=== PATIENT | male | born 1970 | race Caucasian/White ===

== ENCOUNTER 2017-01-14 13:32 | Emergency (ER) | payer MEDICAID ==
[2017-01-14] MEDS ORDERED: ASPIRIN 81 MG TABLET, CHEWABLE PO ONE (14:23)
[2017-01-14] MEDS ORDERED: ONDANSETRON 4 MG TAB.RAPDIS PO ONE (14:24)
--- NOTE | 2017-01-14 14:26 | ER Document Report ---
ED Medical Screen (RME) - General Chief Complaint: Chest Pain Stated Complaint: CHEST PAIN Time Seen by Provider: 01/14/17 14:23 Mode of Arrival: Ambulatory Information source: Patient Notes: 46-year-old male presents to ED for chest pain that comes and goes dizziness off and on since he moved to [place] but worse for the last 4 days. He states today he has had numbness and tingling in his left arm and this is been very concerning and when he squats and gets up he is extremely dizzy and nauseated. He states his father had a heart attack at age 50 and many of his people in his father's side have had heart attacks they also have diabetes that runs for his family. He states he has a history of blood pressure and cholesterol and was told to watch his sugar. He is on metoprolol lisinopril and Suboxone. States he was having a problem with drug addiction but is not had any problem in the last 10 years. Lungs are clear to auscultation bilaterally. I have greeted and performed a rapid initial assessment of this patient. A comprehensive ED assessment and evaluation of the patient, analysis of test results and completion of medical decision making process will be conducted by an additional ED providers. TRAVEL OUTSIDE OF THE [place] IN LAST 30 DAYS: No - Related Data Allergies/Adverse Reactions: No Known Allergies Allergy (Verified 01/14/17 13:33) Home Medications: Current Home Medications Buprenorphine HCl/Naloxone HCl [Suboxone 2 mg-0.5 mg Sl Film] 01/14/17 [History ] Lisinopril [Zestril] 01/14/17 [History] Metoprolol Succinate [Toprol Xl] 01/14/17 [History] Physical Exam - Vital signs Vitals: Temp Pulse Resp BP Pulse Ox 98.3 F 61 12 126/75 H 98 01/14/17 13:41 01/14/17 13:41 01/14/17 13:41 01/14/17 13:41 01/14/17 13:41 Course - Vital Signs Vital signs: Temp Pulse Resp BP Pulse Ox 98.3 F 61 12 126/75 H 98 01/14/17 13:41 01/14/17 13:41 01/14/17 13:41 01/14/17 13:41 01/14/17 13:41
[2017-01-14 15:15] LABS: ABSOLUTE BASOPHILS # (AUTO) 0.1 10^3/uL (0.0-0.2); ABSOLUTE EOSINOPHILS # (AUTO) 0.2 10^3/uL (0.0-0.6); ABSOLUTE LYMPHOCYTES (AUTO) 2.5 10^3/uL (0.5-4.7); ABSOLUTE MONOCYTES (AUTO) 0.6 10^3/uL (0.1-1.4); BASOPHILS % (AUTO) 0.8 % (0-2); EOSINOPHILS % (AUTO) 2.9 % (0-6); HEMOGLOBIN 14.5 g/dL (13.5-17.0); HGB HCT DIFFERENCE 2.5; MEAN CORPUSCULAR HEMOGLOBIN 30.4 pg (27.0-33.4); MEAN CORPUSCULAR HGB CONC 35.3 g/dL (32.0-36.0); MEAN CORPUSCULAR VOLUME 86 fl (80-97); MONOCYTES % (AUTO) 6.9 % (3-13); RED BLOOD COUNT 4.76 10^6/uL (4.35-5.55); RED CELL DISTRIBUTION WIDTH 13.1 % (11.5-14.0); SEGMENTED NEUTROPHILS % (AUTO) 59.4 % (42-78); WHITE BLOOD COUNT 8.4 10^3/uL (4.0-10.5)
[2017-01-14 15:46] LABS: ALANINE AMINOTRANSFERASE 39 U/L (21-72); ALBUMIN 4.7 g/dL (3.5-5.0); ALKALINE PHOSPHATASE 54 U/L (38-126); ANION GAP 11 (5-19); ASPARTATE AMINO TRANSFERASE 22 U/L (17-59); BILIRUBIN,DIRECT 0.3 mg/dL (0.0-0.4); BILIRUBIN,TOTAL 0.5 mg/dL (0.2-1.3); BLOOD UREA NITROGEN 20 mg/dL (7-20); CALCIUM 9.8 mg/dL (8.4-10.2); CARBON DIOXIDE 29 mmol/L (22-30); CHLORIDE 104 mmol/L (98-107); CREATINE KINASE 148 U/L (55-170); CREATININE RESULT 0.76 mg/dL (0.52-1.25); GLUCOSE 82 mg/dL (75-110); SODIUM 144.4 mmol/L (137-145); TOTAL PROTEIN 7.2 g/dL (6.3-8.2)
[2017-01-14 15:58] LABS: CREATINE KINASE MB 1.58 ng/mL (<4.55)
[2017-01-14 16:00] LABS: TROPONIN I < 0.012 ng/mL
--- NOTE | 2017-01-14 16:09 | RADIOLOGY REPORT (SQ) ---
EXAM DESCRIPTION: CHEST PA/LAT COMPLETED DATE/TIME: 01/14/2017 3:57 pm REASON FOR STUDY: chest pain dizziness tingling down left arm COMPARISON: None. EXAM PARAMETERS: NUMBER OF VIEWS: two views TECHNIQUE: Digital Frontal and Lateral radiographic views of the chest acquired. RADIATION DOSE: NA LIMITATIONS: none FINDINGS: LUNGS AND PLEURA: No opacities, masses or pneumothorax. No pleural effusion. MEDIASTINUM AND HILAR STRUCTURES: No masses or contour abnormalities. HEART AND VASCULAR STRUCTURES: Heart normal size. No evidence for failure. BONES: No acute findings. HARDWARE: None in the chest. OTHER: No other significant finding. IMPRESSION: NO SIGNIFICANT RADIOGRAPHIC FINDING IN THE CHEST. TECHNICAL DOCUMENTATION: JOB ID: [id number] [employer]- All Rights Reserved
--- NOTE | 2017-01-14 16:19 | ER Document Report ---
ED Cardiac - General Chief Complaint: Chest Pain Stated Complaint: CHEST PAIN Time Seen by Provider: 01/14/17 14:23 Mode of Arrival: Ambulatory Notes: Patient states she has had 3-4 days of substernal chest pain. It is sharp. It is intermittent. Nothing makes it better or worse. He has had some mild shortness of breath and nausea with it. He states he also gets lightheaded upon standing. He is on 2 different blood pressure medications. He states he also feels that he has had anxiety and panic attacks. There is no radiation of the pain. He states he has had several workups for this in the past that have been negative. TRAVEL OUTSIDE OF THE [place] IN LAST 30 DAYS: No - Related Data Allergies/Adverse Reactions: No Known Allergies Allergy (Verified 01/14/17 14:24) Home Medications: Current Home Medications Buprenorphine HCl/Naloxone HCl [Suboxone 2 mg-0.5 mg Sl Film] 01/14/17 [History ] Lisinopril [Zestril] 01/14/17 [History] Metoprolol Succinate [Toprol Xl] 01/14/17 [History] Past Medical History - General Information source: Patient - Social History Smoking Status: Current Every Day Smoker Chew tobacco use (# tins/day): No Frequency of alcohol use: None Drug Abuse: None, Other Family History: Reviewed & Not Pertinent Patient has suicidal ideation: No Patient has homicidal ideation: No Renal/ Medical History: Denies: Hx Peritoneal Dialysis Review of Systems - Review of Systems Constitutional: denies: Chills, Fever EENT: denies: Nose congestion, Nose discharge Cardiovascular: Chest pain. denies: Syncope Genitourinary: denies: Burning, Dysuria, Discharge -: Yes All other systems reviewed and negative Physical Exam - Vital signs Vitals: Temp Pulse Resp BP Pulse Ox 98.3 F 61 12 126/75 H 98 01/14/17 13:41 01/14/17 13:41 01/14/17 13:41 01/14/17 13:41 01/14/17 13:41 Interpretation: Normal - General General appearance: Appears well, Alert - HEENT Head: Normocephalic, Atraumatic Eyes: Normal Pupils: PERRL - Respiratory Respiratory status: No respiratory distress Chest status: Nontender Breath sounds: Normal Chest palpation: Normal - Cardiovascular Rhythm: Regular Heart sounds: Normal auscultation Murmur: No - Abdominal Inspection: Normal Distension: No distension Bowel sounds: Normal Tenderness: Nontender Organomegaly: No organomegaly - Back Back: Normal, Nontender - Extremities General upper extremity: Normal inspection, Nontender, Normal color, Normal ROM , Normal temperature General lower extremity: Normal inspection, Nontender, Normal color, Normal ROM , Normal temperature, Normal weight bearing. No: Silva's sign - Neurological Neuro grossly intact: Yes Cognition: Normal Orientation: AAOx4 [place] Coma Scale Eye Opening: Spontaneous [place] Coma Scale Verbal: Oriented [place] Coma Scale Motor: Obeys Commands [place] Coma Scale Total: 15 Speech: Normal Motor strength normal: LUE, RUE, LLE, RLE Sensory: Normal - Psychological Associated symptoms: Normal affect, Normal mood - Skin Skin Temperature: Warm Skin Moisture: Dry Skin Color: Normal Course - Vital Signs Vital signs: Temp Pulse Resp BP Pulse Ox 98.3 F 61 12 126/75 H 98 01/14/17 13:41 01/14/17 13:41 01/14/17 13:41 01/14/17 13:41 01/14/17 13:41 - Laboratory Result Diagrams: 01/14/17 15:00 01/14/17 15:00 - Diagnostic Test Radiology reviewed: Image reviewed, Reports reviewed - no ifiltrate or edema - EKG Interpretation by Mo EKG shows normal: Sinus rhythm Rate: Normal Rhythm: NSR [place]/QRS: No: Right axis deviation, Left axis deviation Discharge - Discharge Clinical Impression: Anxiety Chest pain Qualifiers: Chest pain type: unspecified Qualified Code(s): R07.9 - Chest pain, unspecified Condition: Stable Disposition: HOME, SELF-CARE Instructions: Chest Pain of Unclear Cause ([facility]), Anxiety ([facility]) Additional Instructions: Your blood pressure is mildly elevated. Please have this rechecked within 1 week by your doctor. Prescriptions: Alprazolam [Xanax 0.25 mg Tablet] 0.25 mg PO Q6 PRN #15 tab PRN Reason: Forms: Elevated Blood Pressure, Return to Work Referrals: CONRADO MOORE MD [COMMUNITY BASED STAFF] - Follow up in 1 week
[2017-01-14 17:43] VITALS: BP 111/72
--- NOTE | 2017-01-14 20:38 | EKG REPORT ---
SEVERITY:- NORMAL ECG - SINUS RHYTHM : Confirmed by: Bre Banda 14-Jan-2017 20:38:19
== END 2017-01-14 17:42 | disposition home or self-care (01) ==
LOC: ER 13:32
DX: F41.9 Anxiety disorder, unspecified (principal); R07.9 Chest pain, unspecified; F17.200 Nicotine dependence, unspecified, uncomplicated
CPT/HCPCS: 93005; 99285; 36415; 82553; 82550; 85025; 80053; 84484; 71020; 93010; S0119

== ENCOUNTER 2018-03-30 00:22 | Emergency (ER) | payer MEDICAID, OTHER ==
--- NOTE | 2018-03-30 01:14 | RADIOLOGY REPORT (SQ) ---
EXAM DESCRIPTION: XR FOOT 3 OR MORE VIEWS COMPLETED DATE/TME: 03/30/2018 00:37 CLINICAL HISTORY: 47 years Male, pain COMPARISON: None. Findings: Mild swelling includes the left first metatarsophalangeal joint. No radiopaque foreign body. No significant erosion. Punctate soft tissue calcification. No gross radiographic evidence of advanced osteomyelitis. Bones, joints, and soft tissues of the RIGHT XR FOOT 3 VIEWS appear otherwise intact. IMPRESSION: No acute findings.
[2018-03-30] MEDS ORDERED: CEPHALEXIN 500 MG CAPSULE PO ONE (01:28)
[2018-03-30] MEDS ORDERED: COLCHICINE 0.6 MG TABLET PO ONE ×2 (01:28)
[2018-03-30] MEDS ORDERED: KETOROLAC TROMETHAMINE 60 MG/2 ML SDV IM ONE (01:28)
--- NOTE | 2018-03-30 01:35 | ER Document Report ---
ED General - General Chief Complaint: Foot Pain Stated Complaint: FOOT PAIN Time Seen by Provider: 03/30/18 00:37 Notes: Patient is a 47-year-old male without chronic medical problems, does have a history of gouty arthritis to the left great toe who presents with 1 week of pain to the left great toe. Describes it as a dull, throbbing, constant pain worsened by walking toe. Has not tried anything for improvement of the pain. Similar to when he has had gout in the past. The patient does however note that there are some differences. He states that initially it felt exactly like his usual gout and was actually improving 2-3 days ago. He states that on the fourth day the area became more red again and the redness actually spread onto his foot as opposed to just the toe. He states this is quite unusual and is not had this before in the past with gout. Has not seen his primary care doctor regarding today's concerns. Denies fever or constitutional symptoms. He states all the symptoms started after drinking a beer which has triggered his episodes of gout in the past. TRAVEL OUTSIDE OF THE [place] IN LAST 30 DAYS: No - Related Data Allergies/Adverse Reactions: No Known Allergies Allergy (Verified 03/30/18 01:11) Past Medical History - General Information source: Patient - Social History Smoking Status: Never Smoker Frequency of alcohol use: Occasional Drug Abuse: None Lives with: Spouse/Significant other Family History: Reviewed & Not Pertinent Patient has suicidal ideation: No Patient has homicidal ideation: No - Past Medical History Cardiac Medical History: Reports: Hx Hypertension Renal/ Medical History: Denies: Hx Peritoneal Dialysis Review of Systems - Review of Systems Notes: Constitutional: Negative for fever. HENT: Negative for sore throat. Eyes: Negative for visual changes. Cardiovascular: Negative for chest pain. Respiratory: Negative for shortness of breath. Gastrointestinal: Negative for abdominal pain, vomiting or diarrhea. Genitourinary: Negative for dysuria. Musculoskeletal: Pain to the left great toe Skin: Positive for rash. Neurological: Negative for headaches, weakness or numbness. 10 point ROS negative except as marked above and in HPI. Physical Exam - Vital signs Vitals: Temp Pulse Resp BP Pulse Ox 99 F 73 16 148/88 H 96 03/30/18 00:31 03/30/18 00:31 03/30/18 00:31 03/30/18 00:31 03/30/18 00:31 Interpretation: Hypertensive Notes: PHYSICAL EXAMINATION: GENERAL: Well-appearing, well-nourished and in no acute distress. HEAD: Atraumatic, normocephalic. EYES: sclera anicteric, conjunctiva are normal. ENT: Moist mucous membranes. NECK: Normal range of motion LUNGS: Normal work of breathing HEART: 2+ radial pulses bilaterally EXTREMITIES: Mild swelling of the base of the left great toe. Dorsi and plantar flexion of the toe intact. NEUROLOGICAL: No focal neurological deficits. Moves all extremities spontaneously and on command. PSYCH: Normal mood, normal affect. SKIN: Warm, Dry, normal turgor, erythema from the base of the left great toe extending approximately 3-4 cm caudally along the dorsum of the foot Course - Re-evaluation Re-evalutation: 03/30/18 01:34 Patient presents with swelling and erythema to the left great toe although uncharacteristically the erythema has actually spread proximally 3 cm caudally from the base of the great toe. Patient gives a history that suggest that he initially had a gouty arthritis and may still have a component of gouty arthritis but that he may have subsequently developed an associated cellulitis. Patient does have range of motion of the toe, do not suspect a septic joint of the toe. No fever or constitutional symptoms. Vitals within normal limits. Given the somewhat undifferentiated picture will empirically cover the patient for both gout and cellulitis. He has been given a dose of colchicine and will take a second dose 1 hour after the initial. Ibuprofen for pain as well as possible treatment of gout. He has also been started on cephalexin. At this time will discharge with return precautions and follow-up recommendations. Verbal discharge instructions given a the bedside and opportunity for questions given. Medication warnings reviewed. Patient is in agreement with this plan and has verbalized understanding of return precautions and the need for primary care follow-up in the next 24-72 hours. - Vital Signs Vital signs: Temp Pulse Resp BP Pulse Ox 99 F 73 16 148/88 H 96 03/30/18 00:31 03/30/18 00:31 03/30/18 00:31 03/30/18 00:31 03/30/18 00:31 - Diagnostic Test Radiology reviewed: Image reviewed, Reports reviewed Radiology results interpreted by me: 03/30/18 01:35 Left foot x-ray: No acute fracture or dislocation. Discharge - Discharge Clinical Impression: Gouty arthritis of left foot, Cellulitis of left foot Condition: Good Disposition: HOME, SELF-CARE Additional Instructions: You were seen today for gout. Please take the second dose of colchicine that you were sent home with 1 hour after receiving your first dose. Take ibuprofen 600 mg with Tylenol 1000 mg every 6 hours as needed for pain. Follow-up with your primary care doctor in the next several days. Return if you have fever greater than 100.4F, worsening pain, become unable to move the knee, or have any other symptoms that are worrisome to you. The rash is likely due to infection of your skin. You need to take the antibiotics as prescribed. Do not stop even if the rash goes away until you have completed all the antibiotics. The area of redness was traced out here in the emergency department with a marking pen. You need to return to emergency department if the redness spreads outside of this area by more than 2 cm in any direction. You should also return if you develop fevers with temperature greater than 101, persistent vomiting, worsening pain, or have any other symptoms that are concerning to you. Prescriptions: Cephalexin Monohydrate [Keflex 500 mg Capsule] 500 mg PO Q6H 7 Days capsule
[2018-03-30 01:54] VITALS: BP 124/78
== END 2018-03-30 01:54 | disposition home or self-care (01) ==
LOC: ER 00:22
DX: M10.9 Gout, unspecified (principal); L03.116 Cellulitis of left lower limb; M79.675 Pain in left toe(s); I10 Essential (primary) hypertension
CPT/HCPCS: 99283; 96372; 73630; J3490; J1885

== ENCOUNTER 2019-09-22 12:14 | Emergency (ER) | payer MEDICAID ==
[2019-09-22 12:18] VITALS: BP 139/94
--- NOTE | 2019-09-22 12:29 | ER Document Report ---
ED Medical Screen (RME) - General Chief Complaint: Rib Pain Stated Complaint: RIB PAIN Time Seen by Provider: 09/22/19 12:27 Primary Care Provider: ETIENNE BARRERA MD [Primary Care Provider] - Follow up as needed Mode of Arrival: Ambulatory Information source: Patient Notes: 49-year-old male presented to ED for complaint of left rib pain. He states it happened while he was drinking he thinks Saturday. He states he does not know what happened because he was drinking and he does not know what happened. He is alert oriented respirations regular nonlabored. I do not think he has a pneumothorax but will get x-rays to make sure. He states only medical history was a opiate addiction and he was on Suboxone to get off of that. He states he has been off that for couple months and does not want opiates. He does have a history of high blood pressure and multiple broken bones he did have surgery to the right wrist and has no idea when his last tetanus was. He does not drink more than once or twice a year but he did have one on this weekend. He does not smoke and does not use any illicit drugs. We will get the x-ray of the ribs if there is no pneumothorax we will discharge him home. TRAVEL OUTSIDE OF THE [place] IN LAST 30 DAYS: No - HPI Onset: Other - Saturday Onset/Duration: Waxing and waning Quality of pain: Sharp Severity: Moderate Pain Level: 2 Associated Symptoms: Other - Left rib pain Exacerbated by: Movement, Coughing, Deep breathing Relieved by: Denies Similar symptoms previously: No Recently seen / treated by doctor: No - Related Data Smoking: Non-smoker Frequency of alcohol use: Rare Drug Abuse: None Allergies/Adverse Reactions: No Known Allergies Allergy (Verified 09/22/19 12:23) Past Medical History - General Information source: Patient - Social History Chew tobacco use (# tins/day): No Frequency of alcohol use: Rare Drug Abuse: None Family history: Reviewed & Not Pertinent - Medical History Medical History: Other - Previous opiate addiction took Suboxone for years off now, states does not want opiates - Past Medical History Cardiac Medical History: Reports: Hx Hypertension Pulmonary Medical History: Reports: None EENT Medical History: Reports: None Neurological Medical History: Reports: None Endocrine Medical History: Reports: None Renal/ Medical History: Reports: None Malignancy Medical History: Reports None GI Medical History: Reports: None Musculoskeltal Medical History: Reports Hx Musculoskeletal Deformity, Reports Hx Musculoskeletal Trauma Skin Medical History: Reports None Psychiatric Medical History: Reports: None Traumatic Medical History: Reports: Hx Fractures - Multiple unsure exactly which ones Infectious Medical History: Reports: None Surgical Hx: Negative Past Surgical History: Reports: None - Immunizations Immunizations up to date: No Hx Diphtheria, Pertussis, Tetanus Vaccination: No Review of Systems - Review of Systems Constitutional: No symptoms reported EENT: No symptoms reported Cardiovascular: No symptoms reported Respiratory: No symptoms reported Gastrointestinal: No symptoms reported Genitourinary: No symptoms reported Male Genitourinary: No symptoms reported Musculoskeletal: No symptoms reported Skin: No symptoms reported Hematologic/Lymphatic: No symptoms reported Neurological/Psychological: No symptoms reported -: Yes All other systems reviewed and negative Physical Exam - Vital signs Vitals: Temp Pulse Resp BP Pulse Ox 98.7 F 86 16 139/94 H 96 09/22/19 12:17 09/22/19 12:17 09/22/19 12:17 09/22/19 12:17 09/22/19 12:17 Interpretation: Normal - General General appearance: Appears well, Alert - HEENT Head: Normocephalic, Atraumatic Eyes: Normal Pupils: PERRL - Respiratory Respiratory status: No respiratory distress Chest status: Tender, Pain with cough, Pain with deep breathing Breath sounds: Normal Chest palpation: Normal - Cardiovascular Rhythm: Regular Heart sounds: Normal auscultation Murmur: No - Abdominal Inspection: Normal Distension: No distension Bowel sounds: Normal Tenderness: Nontender Organomegaly: No organomegaly - Back Back: Normal, Nontender - Extremities General upper extremity: Normal inspection, Nontender, Normal color, Normal ROM, Normal temperature General lower extremity: Normal inspection, Nontender, Normal color, Normal ROM, Normal temperature, Normal weight bearing. No: Silva's sign - Neurological Neuro grossly intact: Yes Cognition: Normal Orientation: AAOx4 [place] Coma Scale Eye Opening: Spontaneous [place] Coma Scale Verbal: Oriented [place] Coma Scale Motor: Obeys Commands [place] Coma Scale Total: 15 Speech: Normal Motor strength normal: LUE, RUE, LLE, RLE Sensory: Normal - Psychological Associated symptoms: Normal affect, Normal mood - Skin Skin Temperature: Warm Skin Moisture: Dry Skin Color: Normal Course - Re-evaluation Re-evalutation: 09/22/19 18:57 X-rays were negative for any fractured ribs or pneumothorax. Patient was reassured and treated with Toradol for his pain. Patient was instructed to please follow-up with his primary care. He was also given an incentive spirometer to use to ensure that he takes deep breaths to prevent a pneumonia. - Vital Signs Vital signs: Temp Pulse Resp BP Pulse Ox 98.7 F 86 16 139/94 H 96 09/22/19 12:17 09/22/19 12:17 09/22/19 12:17 09/22/19 12:17 09/22/19 12:17 - Diagnostic Test Radiology reviewed: Image reviewed, Reports reviewed Doctor's Discharge - Discharge Clinical Impression: Contusion of rib on left side Qualifiers: Encounter type: initial encounter Qualified Code(s): S20.212A - Contusion of left front wall of thorax, initial encounter Condition: Stable Disposition: HOME, SELF-CARE Additional Instructions: Rib Contusion You have been diagnosed as having bruised ribs. It will usually take a few weeks for these injured ribs to heal. You should cough or take a deep breath at least every hour or two to prevent lung complications. You should not engage in any strenuous physical activity until released by your physician. The usual rule is "if it hurts, don't do it." Return if you develop any of the following: (1) Fever or chills. (2) Persistent cough, coughing up blood, or shortness of breath. (3) Increasing pain. (4) Weakness, lightheadedness, or fainting. Ice Packs Apply ice packs frequently against the painful area. Many different sc hedules are recommended, such as "20 minutes on, 20 minutes off" or "one hour ice, two hours rest." If you need to work, you may need to go longer between ice treatments. You should plan to have the area ice packed AT LEAST one fourth of the time. The ice should be applied over the wrap, tape, or splint, or over a layer of cloth -- not directly against the skin. Some ice bags have a built-in cloth and can be put directly on the skin. We have given you an incentive spirometer. Please use this 10 times every hour as the nurse will explained to you. This will prevent you from getting pneumonia from the not taking deep breaths with your rib pain. Please splint your ribs when you take a deep cough. There are no fractures noted there is no pneumothorax. Toradol Injection You have been given an injection of ketorolac tromethamine (Toradol). This is an excellent, safe drug for pain control. It also has potent antiinflammatory action. You should have significant pain relief within about one hour. Toradol is not addicting and is non-sedating. It does not interfere with driving or work. Call or return if you develop itching, hives, shortness of breath, or rash. FOLLOW-UP CARE: If you have been referred to a physician for follow-up care, call the physicians office for an appointment as you were instructed or within the next two days. If you experience worsening or a significant change in your symptoms, notify the physician immediately or return to the Emergency Department at any time for re-evaluation. Forms: Elevated Blood Pressure Referrals: ETIENNE BARRERA MD [Primary Care Provider] - Follow up as needed
--- NOTE | 2019-09-22 13:55 | RADIOLOGY REPORT (SQ) ---
EXAM DESCRIPTION: RIBS LEFT W/PA CHEST IMAGES COMPLETED DATE/TIME: 09/22/2019 1:42 pm REASON FOR STUDY: Pain injury left ribs COMPARISON: None. TECHNIQUE: Frontal view of the chest and additional views of the left ribs acquired. NUMBER OF VIEWS: Five view. LIMITATIONS: None. FINDINGS: FRONTAL CXR: No pneumothorax. No pleural effusion. No atelectasis or infiltrates. RIBS: No displaced rib fractures. No lytic or blastic bony lesions. OTHER: No other significant finding. IMPRESSION: NO PNEUMOTHORAX. NO DISPLACED RIB FRACTURES. COMMENT: SITE OF TRAUMA/COMPLAINT MARKED/STAMP COMPLETED: YES. TECHNICAL DOCUMENTATION: JOB ID: [id number] [employer]- All Rights Reserved Reading location - IP/workstation name: [email or web address]
[2019-09-22] MEDS ORDERED: KETOROLAC TROMETHAMINE 60 MG/2 ML SDV IM ONE (14:25)
== END 2019-09-22 14:45 | disposition home or self-care (01) ==
LOC: ER 12:14
DX: S20.212A Contusion of left front wall of thorax, initial encounter (principal); X58.XXXA Exposure to other specified factors, initial encounter; R07.81 Pleurodynia; I10 Essential (primary) hypertension
CPT/HCPCS: 99283; 96372; 71101; J1885

== ENCOUNTER → 2019-10-07 | Outpatient (CLI) | payer MEDICAID ==
--- NOTE | 2019-10-08 09:05 | RADIOLOGY REPORT (SQ) ---
EXAM DESCRIPTION: CT SINUSES FOR ENT IMAGES COMPLETED DATE/TIME: 10/07/2019 10:54 am REASON FOR STUDY: (J32.9)CHRONIC SINUSITIS, UNSPECIFIED J32.9 CHRONIC SINUSITIS, UNSPECIFIED COMPARISON: None. TECHNIQUE: Noncontrast scanning through the paranasal sinuses using bone algorithm. Reconstructed MPR images reviewed. All images stored on PACS. All CT scanners at this facility use dose modulation, iterative reconstruction, and/or weight based d osing when appropriate to reduce radiation dose to as low as reasonably achievable (ALARA). [facility]: Dose Right [facility]: CareDose [facility]: Dose Right [facility]: Teradose 4D [facility]: [employer] RADIATION DOSE: 47mGy. LIMITATIONS: None. FINDINGS: Right sinuses and drainage pathways: Post-surgical changes: None. Frontal sinus: Normal. Frontoethmoidal Recess: Normal. Anterior Ethmoid Sinuses: Normal. Posterior Ethmoid Sinuses: Normal. Sphenoid Sinus: Normal. Sphenoethmoidal Recess: Normal. Maxillary Sinus: Normal. Ostiomeatal Complex: Normal. Left Sinuses and Drainage Pathways: Post-Surgical Changes: None. Frontal Sinus: Normal. Frontoethmoidal Recess: Normal. Anterior Ethmoid Sinuses: Normal. Posterior Ethmoid Sinuses: Normal. Sphenoid Sinus: Normal. Sphenoethmoidal Recess: Normal. Maxillary Sinus: Normal. Ostiomeatal Complex: Normal. Right Olfactory Fossa: No polyps. Left Olfactory Fossa: No polyps. Middle Turbinate More Bull[place]: No. Paradoxical Middle Turbinate: No. Atelectatic Uncinated Process: No. Frontal Bel Cell Type I: Bilateral Frontal Bel Cell Type II: Bilateral Interfrontal Sinus Septal Cell: None. Supra-Orbital Ethmoid: Bilateral Frontal Bullar Cell: None. Suprabullar Bullar Cell: None. Sphenoethmoidal (Onodi) Cell: None. Pneumatization of the Anterior Clinoid Processes: No Hypoplastic Maxillary Sinus: None. Osteoneogenesis: None. Bone Dehiscence:None. Nasal Cavity: Normal. Nasal Septum: Midline Anatomic Variants: Right Vidian Canal: Normal. Left Vidian Canal: Normal. Limited view of the brain parenchyma in the field of view is unremarkable. IMPRESSION: NO EVIDENCE OF ACUTE OR CHRONIC SINUSITIS. TECHNICAL DOCUMENTATION: JOB ID: [id number] Quality ID # [id number]: Final reports with documentation of one or more dose reduction techniques (e.g., Au tomated exposure control, adjustment of the mA and/or kV according to patient size, use of iterative reconstruction technique) 2010 [employer]- All Rights Reserved Reading location - IP/workstation name: [email or web address]
== END ==
LOC: RAD 10:35
PROVIDERS: ATTEND Otolaryngology
DX: J32.9 Chronic sinusitis, unspecified (principal)
CPT/HCPCS: 70486